=== PATIENT | male | born 1990 | race Caucasian/White ===

== ENCOUNTER 2023-06-03 05:44 | Observation (INO) | payer OTHER ==
[2023-06-03 06:29] LABS: Basophils % (A) 0 %; Eosinophils # (A) 0.3 k/uL (0-0.7); Eosinophils % (A) 4 %; HCT 42.4 % (39.0-53.0); HGB 14.8 gm/dL (13.0-17.5); Lymphocytes % (A) 33 %; MCH 32.4 pg (25.0-35.0); MCHC 35.1 g/dL (31.0-37.0); MCV 92.4 fL (80.0-100.0); Mean Platelet Volume 8.7; Monocytes # (A) 0.4 k/uL (0-1.0); Monocytes % (A) 7 %; Neutrophils # (A) 3.3 k/uL (1.3-7.7); Neutrophils % (A) 54 %; Platelet Count 163 k/uL (150-450); RBC 4.58 m/uL (4.30-5.90)
[2023-06-03] MEDS ORDERED: NITROGLYCERIN 0.3MG/HR PATCH TRANSDERM ONE (06:49)
[2023-06-03] MEDS ORDERED: ASPIRIN 81 MG PO STA ×2 (06:52→07:37)
--- NOTE | 2023-06-03 06:52 | ED ---
Chest Pain HPI - General Chief Complaint: Chest Pain Stated Complaint: Chest Pain Source: patient Mode of arrival: wheelchair Limitations: no limitations - History of Present Illness Initial Comments: The patient's a 33-year-old gentleman with a cardiac history and one stent placed in January who presents emergency room accompanied by his parents for chest pain that started 5 hours ago. Patient was playing video games when he noticed pressure in his chest. He states it radiates to the throat and neck. He states it feels similar to when he had a heart attack back in January. Patient was seen in [place] and had his 6 month follow-up without any changes. Patient is on Brilinta. He has not established with a ranch hand livestock or PCP since moving to [place]. The patient states that after he started to have the pain he felt as though his heart was racinging. he denies any shortness breath, cough, congestion, fevers, hemoptysis, pain or side to lower extremity or history of DVT or PE. His father at 37 from heart attack however mother states is also drug induced. He has a strong family history of cardiac disease at an early age. Patient denies any daily alcohol. He is a nonsmoker and denies any drug use. - Related Data Allergies Allergy/AdvReac Type Severity Reaction Status Date / Time No Known Allergies Allergy Verified 06/03/23 05:53 Review of Systems ROS Statement: Those systems with pertinent positive or pertinent negative responses have been documented in the HPI. ROS Other: All systems not noted in ROS Statement are negative. EKG Findings - EKG Comments: EKG Findings:: EKG shows sinus rhythm at a rate of 61 bpm, no acute ST segment elevation, normal QT interval at 404 ms Past Medical History Additional Past Medical History / Comment(s): ME History of Any Multi-Drug Resistant Organisms: None Reported Past Surgical History: Heart Catheterization With Stent Past Psychological History: No Psychological Hx Reported Smoking Status: Never smoker Past Alcohol Use History: Occasional Past Drug Use History: None Reported General Exam Limitations: no limitations General appearance: alert, in no apparent distress Head exam: Present: atraumatic Eye exam: Present: normal appearance, PERRL ENT exam: Present: normal exam Neck exam: Present: normal inspection Respiratory exam: Present: normal lung sounds bilaterally Cardiovascular Exam: Present: regular rate, normal rhythm GI/Abdominal exam: Present: soft Neurological exam: Present: alert, oriented X3, CN II-XII intact Psychiatric exam: Present: normal affect, normal mood Skin exam: Present: warm, dry Course Vital Signs 06/03/23 06/03/23 05:50 07:38 Temperature 97.9 F 98.3 F Pulse Rate 75 64 Respiratory 18 17 Rate Blood Pressure 133/87 120/78 O2 Sat by Pulse 100 98 Oximetry - Reevaluation(s) Reevaluation #1: 06/03/23 08:19 The patient's well appearing emergency room. His pain is improved since getting to the emergency room. He was given aspirin as he only took 81 mg prior to arrival emergency room. Has not been given nitro in the emergency room this time. I discussed admission with the patient and family at bedside as patient has no ranch hand livestock to follow up with locally. He agrees to this plan. Mom is requesting a referral to ranch hand livestock Dr. Alexander 06/03/23 08:20 Chest Pain MDM - MDM Was pt. sent in by a medical professional or institution (, PA, EDITOR MAP, urgent care, hospital, or fci...) When possible be specific @ -[No] Did you speak to anyone other than the patient for history (EMS, parent, family, police, friend...)? What history was obtained from this source @ -Parents at the bedside Did you review nursing and triage notes (agree or disagree)? Why? @ -[I reviewed and agree with nursing and triage notes] Were old charts reviewed (outside hosp., previous admission, EMS record, old EKG, old radiological studies, urgent care reports/EKG's, fci records)? Report findings @ -[No old charts were reviewed] Differential Diagnosis (chest pain, altered mental status, abdominal pain women, abdominal pain men, vaginal bleeding, weakness, fever, dyspnea, syncope, headache, dizziness, GI bleed, back pain, seizure, CVA, palpatations, mental health, musculoskeletal)? @ -Chest pain, angina, ME, GERD EKG interpreted by me (3pts min.). @ -EKG shows sinus rhythm at a rate of 61 bpm, no acute ST segment elevation X-rays interpreted by me (1pt min.). @ -Or thorax, pneumonia or other acute changes seen on chest x-ray CT interpreted by me (1pt min.). @ -[None done] U/S interpreted by me (1pt. min.). @ -[None done] What testing was considered but not performed or refused? (CT, X-rays, U/S, labs)? Why? @ -[None] What meds were considered but not given or refused? Why? @ -[None] Did you discuss the management of the patient with other professionals (professionals i.e. Dr., PA, EDITOR MAP, lab, RT, psych nurse, oncology social worker, form maker plaster, teacher, civil preparedness officer, case making machine operator)? Give summary @ -I spoke with Dr. Powell who was the internal hospitalist for [facility] group regarding patient's admission and cardiac evaluation. He will continue the cardiac rule out and referrals with the observation hospital stay. Was smoking cessation discussed for >3mins.? @ -[No] Was critical care preformed (if so, how long)? @ -[No] Were there social determinants of health that impacted care today? How? (Homelessness, low income, unemployed, alcoholism, drug addiction, transportation, low edu. Level, literacy, decrease access to med. care, residential, rehab)? @ -[No] Was there de-escalation of care discussed even if they declined (Discuss DNR or withdrawal of care, Hospice)? DNR status @ -[No] What co-morbidities impacted this encounter? (DM, HTN, Smoking, COPD, CAD, Cancer, CVA, ARF, Chemo, Hep., AIDS, mental health diagnosis, sleep apnea, morbid obesity)? @ -History of ME with coronary artery disease Was patient admitted / discharged? Hospital course, mention meds given and route, prescriptions, significant lab abnormalities, going to OR and other pertinent info. @ -Patient will be admitted to the hospital for observation and further cardiac evaluation given his significant history. At this time troponin is negative with no acute ST segment elevation. We will trend the troponin is and the patient establish with a local ranch hand livestock prior to being discharged. Undiagnosed new problem with uncertain prognosis? @ -[No] Drug Therapy requiring intensive monitoring for toxicity (Heparin, Nitro, Insulin, Cardizem)? @ -[No] Were any procedures done? @ -[No] Diagnosis/symptom? @ -Chest pain Acute, or Chronic, or Acute on Chronic? @ -Acute Uncomplicated (without systemic symptoms) or Complicated (systemic symptoms)? @ -Uncomplicated Side effects of treatment? @ -[No] Exacerbation, Progression, or Severe Exacerbation? @ -[No] Poses a threat to life or bodily function? How? (Chest pain, USA, ME, pneumonia, PE, COPD, DKA, ARF, appy, cholecystitis, CVA, Diverticulitis, Homicidal, Suicidal, threat to staff... and all critical care pts) @ -Given patient's history of ME with stent placement and significant family history his pain does poses a threat to life and disability. Disposition Clinical Impression: Chest pain Disposition: ADMITTED IP TO THIS HOSP Condition: Good Is patient prescribed a controlled substance at d/c from ED?: No Referrals: None,Stated [Primary Care Provider] - 1-2 days Decision to Admit Reason: Admit from EC Decision Time: 08:26
[2023-06-03 06:59] LABS: ALT 62 U/L (4-49); AST 51 U/L (17-59); African American GFR (CKD) >90 (>60 ml/min/1.73 sqM); Albumin 4.3 g/dL (3.5-5.0); Alkaline Phosphatase 104 U/L (38-126); Anion Gap 11 mmol/L; Blood Urea Nitrogen 16 mg/dL (9-20); Calcium 9.4 mg/dL (8.4-10.2); Carbon Dioxide 21 mmol/L (22-30); Chloride 105 mmol/L (98-107); Glucose 126 mg/dL (74-99); Non-African American GFR(CKD) >90 (>60 ml/min/1.73 sqM); Sodium 137 mmol/L (137-145); Total Bilirubin 0.5 mg/dL (0.2-1.3); Total Protein 7.1 g/dL (6.3-8.2)
[2023-06-03 07:17] LABS: INR 0.9 (<1.2); Partial Thromboplastin Time 24.4 sec (22.0-30.0); Prothrombin Time 10.5 sec (10.0-12.5)
--- NOTE | 2023-06-03 07:17 | XR ---
EXAMINATION TYPE: XR chest 2V DATE OF EXAM: 06/03/2023 6:32 AM CLINICAL INDICATION:Male, 33 years old with history of chest pain; COMPARISON: Chest radiographs from 04/01/2012 TECHNIQUE: XR chest 2V Frontal and lateral views of the chest. FINDINGS: Lungs/Pleura: There is no evidence of pleural effusion, focal consolidation, or pneumothorax. Pulmonary vascularity: Unremarkable. Heart/mediastinum: Cardiomediastinal silhouette is unremarkable. Musculoskeletal: No acute osseous pathology. Other findings: None IMPRESSION: No acute cardiopulmonary disease/process.
[2023-06-03] MEDS ORDERED: NITROGLYCERIN SL TABS 0.4 MG TAB SUBLINGUAL PRN ×3 (07:37→10:52)
[2023-06-03] MEDS ORDERED: HEPARIN SODIUM 1,000 UN/ML (10ML VL) IV ONE ×2 (08:34→12:08)
[2023-06-03] MEDS ORDERED: ACETAMINOPHEN TAB 325 MG TAB PO PRN (08:34)
[2023-06-03] MEDS ORDERED: NALOXONE 0.4 MG/ML 1 ML VIAL IVP PRN (08:34)
[2023-06-03] MEDS ORDERED: HEPARIN SODIUM 1,000 UN/ML (10ML VL) IV PRN (08:34)
[2023-06-03] MEDS ORDERED: HYDROcodone/APAP 5-325MG 1 EACH TAB PO PRN (08:34)
[2023-06-03] MEDS ORDERED: PANTOPRAZOLE 40 MG TABLET PO SCH (08:45)
[2023-06-03] MEDS ORDERED: HEPARIN SOD,PORK IN 0.45% NACL 25,000 UNIT in 0.45% NACL 1 250ML.BAG IV SCH (08:45)
[2023-06-03] MEDS ORDERED: ATORVASTATIN 80 MG TAB PO SCH ×2 (09:00→21:00)
[2023-06-03] MEDS ORDERED: ASPIRIN 81 MG PO SCH (09:00)
[2023-06-03] MEDS ORDERED: TICAGRELOR 90 MG TAB PO SCH (10:45)
[2023-06-03] MEDS ORDERED: ATORVASTATIN 80 MG TAB PO STA (10:52)
[2023-06-03] MEDS ORDERED: ASPIRIN 325 MG TAB PO STA (10:52)
[2023-06-03] MEDS ORDERED: ALPRAZolam 0.25 MG TAB PO PRN (10:52)
[2023-06-03] MEDS ORDERED: ALPRAZolam 0.5 MG TAB PO PRN (10:52)
[2023-06-03 10:57] LABS: Amphetamine Screen,Urine Not Detected (NotDetected); Barbiturate Screen,Urine Not Detected (NotDetected); Benzodiazepines Screen,Urine Not Detected (NotDetected); Cocaine Screen,Urine Not Detected (NotDetected); Methadone Screen, Urine Not Detected (NotDetected); Opiate Screen,Urine Not Detected (NotDetected); Oxycodone Screen, Urine Not Detected (NotDetected); Phencyclidine Screen,Urine Not Detected (NotDetected); Tricyclic Antidepressant,Urine Not Detected (NotDetected); Urn Cannabinoid Scrn Not Detected (NotDetected)
[2023-06-03] MEDS ORDERED: SODIUM CHLORIDE 0.9% 1,000 ML in EMPTY BAG 1 BAG IV SCH (11:00)
[2023-06-03] MEDS ORDERED: VERAPAMIL 2.5 MG/ML 2 ML AMP ONE (11:25)
[2023-06-03] MEDS ORDERED: LIDOCAINE 1% INJ 10MG/ML (20 ML MDV) ONE (11:25)
[2023-06-03] MEDS ORDERED: fentaNYL (PF) 50 MCG/ML 2 ML AMP ONE (11:37)
[2023-06-03] MEDS ORDERED: HEPARIN SODIUM 1,000 UN/ML (10ML VL) ONE (11:37)
[2023-06-03] MEDS ORDERED: IV FLUID CONTINUATION 1,000 ML IV ONE (11:51)
[2023-06-03] MEDS ORDERED: LIDOCAINE 1% INJ 10MG/ML (20 ML MDV) SQ ONE (11:55)
[2023-06-03] MEDS ORDERED: fentaNYL (PF) 50 MCG/ML 2 ML AMP IVP ONE (11:56)
[2023-06-03] MEDS ORDERED: VERAPAMIL SYRINGE (5 MG/10 ML) INTRAARTER ONE (12:00)
--- NOTE | 2023-06-03 12:08 | P.CRDCN ---
History of Present Illness History of present illness: HISTORY OF PRESENT ILLNESS: This is a 33-year-old male with a past medical history significant for coronary artery disease with stenting of the diagonal in January 2023, hyperlipidemia, and occasional alcohol use. Patient does not follow with a radio communications superintendent at [facility]. We have been asked to see the patient in consultation for chest pain. Patient examined at the bedside. Patient states yesterday he was feeling "off" for the majority of the day but did not describe any specific symptoms. He states at 1:30 this morning he was awake and began having chest pain. He states the pain was in the middle of his chest. He denied any radiation of the pain. He states that he took an aspirin and tried to fall asleep. He states he woke up a short time later and was short of breath, felt his heart pounding, and was having very bad heartburn symptoms. He states the symptoms do not feel at all like his symptoms in January when he had his stent placed. He states at that time he was having chest pain and shortness of breath with exertion for 4-5 days. At the time of examination, the patient reports mild heartburn. He is a nonsmoker. He reports alcohol use every other day of 1-2 drinks. He states he followed up with the radio communications superintendent who performed his stenting one month after his procedure and was told everything looked good and he could follow up again in 6 months. * EKG reveals sinus mechanism with no signs of acute ischemia * Chest xray negative for acute process * Laboratory data: Troponin negative 2 * Current home cardiac medications include aspirin 81 mg daily, atorvastatin 80 mg at night, metoprolol tartrate 25 mg daily, and Brilinta 90 mg twice a day REVIEW OF SYSTEMS: At the time of my exam: CONSTITUTIONAL: Denies fever or chills. HEENT: Denies blurred vision, vision changes, or eye pain. Denies hemoptysis CARDIOVASCULAR: Denies chest pain. Denies orthopnea. Denies PND. Denies palpitations RESPIRATORY: Denies shortness of breath. GASTROINTESTINAL: Denies abdominal pain. Denies nausea or vomiting. HEMATOLOGIC: Denies bleeding disorders. GENITOURINARY: Denies any blood in urine. SKIN: Denies pruitis. Denies rash. PHYSICAL EXAM: VITAL SIGNS: Reviewed. GENERAL: Well-developed in no acute distress. HEENT: Head is normocephalic. Pupils are equal, round. Sclerae anicteric. Mucous membranes of the mouth are moist. Neck supple. No JVD or thyromegaly LUNGS: Respirations even and unlabored. Lungs essentially clear to auscultation bilaterally. HEART: Regular rate and rhythm. S1 and S2 heard. ABDOMEN: Soft. Nondistended. Nontender. EXTREMITIES: Normal range of motion. No clubbing or cyanosis. Peripheral pulses intact. No lower extremity edema NEUROLOGIC: Awake and alert. Oriented x 3. ASSESSMENT: Chest pain Coronary artery disease with recent stenting to the diagonal, January 2023, at [facility] Hyperlipidemia Occasional alcohol use PLAN: Obtain 2-D echo to assess cardiac structure and function Discontinue IV heparin Resume home cardiac medications Patient to undergo cardiac catheterization today with Dr. Denton Further recommendations pending patient course Nurse practitioner note has been reviewed by physician. Signing provider agrees with the documented findings, assessment, and plan of care. Past Medical History Additional Past Medical History / Comment(s): OR History of Any Multi-Drug Resistant Organisms: None Reported Past Surgical History: Heart Catheterization With Stent Past Psychological History: No Psychological Hx Reported Smoking Status: Never smoker Past Alcohol Use History: Occasional Past Drug Use History: None Reported Medications and Allergies Home Medications Medication Instructions Recorded Confirmed Type Aspirin 81 mg PO DAILY 06/03/23 06/03/23 History Atorvastatin Calcium [Lipitor] 80 mg PO HS 06/03/23 06/03/23 History Metoprolol Tartrate [Lopressor] 25 mg PO DAILY 06/03/23 06/03/23 History Ticagrelor [Brilinta] 90 mg PO BID 06/03/23 06/03/23 History Allergies Allergy/AdvReac Type Severity Reaction Status Date / Time No Known Allergies Allergy Verified 06/03/23 08:38 Physical Exam Vitals: Vital Signs Temp Pulse Pulse Resp BP BP Pulse Ox 06/03/23 09:54 97.6 F 51 L 12 116/78 99 06/03/23 08:59 55 L 18 108/72 97 06/03/23 07:38 98.3 F 64 17 120/78 98 06/03/23 05:50 97.9 F 75 18 133/87 100 Intake and Output 06/02/23 06/03/23 06/03/23 22:59 06:59 14:59 Other: Weight 86.183 kg Results 06/03/23 06:15 06/03/23 06:15 Cardiac Enzymes 06/03/23 06/03/23 Range/Units 06:15 06:15 AST 51 (17-59) U/L Troponin I <0.012 (0.000-0.034) ng/mL Coagulation 06/03/23 Range/Units 06:53 PT 10.5 (10.0-12.5) sec APTT 24.4 (22.0-30.0) sec CBC 06/03/23 Range/Units 06:15 WBC 6.0 (3.8-10.6) k/uL RBC 4.58 (4.30-5.90) m/uL Hgb 14.8 (13.0-17.5) gm/dL Hct 42.4 (39.0-53.0) % Plt Count 163 (150-450) k/uL Comprehensive Metabolic Panel 06/03/23 Range/Units 06:15 Sodium 137 (137-145) mmol/L Potassium 4.0 (3.5-5.1) mmol/L Chloride 105 (98-107) mmol/L Carbon Dioxide 21 L (22-30) mmol/L BUN 16 (9-20) mg/dL Creatinine 0.94 (0.66-1.25) mg/dL Glucose 126 H (74-99) mg/dL Calcium 9.4 (8.4-10.2) mg/dL AST 51 (17-59) U/L ALT 62 H (4-49) U/L Alkaline Phosphatase 104 (38-126) U/L Total Protein 7.1 (6.3-8.2) g/dL Albumin 4.3 (3.5-5.0) g/dL Current Medications Generic Name Dose Route Start Last Admin Trade Name Freq PRN Reason Stop Dose Admin Acetaminophen 650 mg 06/03/23 08:34 Acetaminophen Tab 325 Mg Tab PO Q6HR PRN Mild Pain or Fever > 100.5 Hydrocodone Bitart/Acetaminophen 1 each 06/03/23 08:34 Hydrocodone/Apap 5-325mg 1 Each Tab PO Q4HR PRN Moderate Pain (Scale 4 to 6) Aspirin 81 mg 06/04/23 09:00 06/03/23 10:08 Aspirin 81 Mg PO Not Given DAILY [facility] Atorvastatin Calcium 80 mg 06/03/23 21:00 Atorvastatin 80 Mg Tab PO HS MAGDY Heparin Sodium (Porcine) 0 unit 06/03/23 08:34 Heparin Sodium 1,000 Un/Ml (10ml Vl) IV PER PROTOCOL PRN Low PTT Protocol Heparin Sodium/Sodium Chloride 250 mls @ 10 mls/hr 06/03/23 08:45 06/03/23 0 8:57 25,000 unit/ Sodium Chloride IV 11.603 units/kg/hr .Q24H MAGDY 10 mls/hr Administration Protocol 11.603 UNITS/KG/HR Naloxone HCl 0.2 mg 06/03/23 08:34 Naloxone 0.4 Mg/Ml 1 Ml Vial IVP Q2M PRN Opioid Reversal Nitroglycerin 0.4 mg 06/03/23 08:31 Nitroglycerin Sl Tabs 0.4 Mg Tab SUBLINGUAL Q5M PRN Chest Pain Pantoprazole Sodium 40 mg 06/03/23 08:45 06/03/23 08:57 Pantoprazole 40 Mg Tablet PO 40 mg [id number] [facility] Administration Intake and Output 06/02/23 06/03/23 06/03/23 22:59 06:59 14:59 Other: Weight 86.183 kg 06/03/23 06:15 06/03/23 06:15
[2023-06-03] MEDS ORDERED: IOPAMIDOL-370 100ML BTL INJ ONE (12:18)
[2023-06-03] MEDS ORDERED: RX INFO: IV CONTRAST WAS GIVEN 1 EACH MISC MISCELLANE PRN (12:29)
[2023-06-03] MEDS ORDERED: SODIUM CHLORIDE 0.9% 1,000 ML IV SCH (12:30)
--- NOTE | 2023-06-03 12:34 | P.CARDCATH ---
Date of Procedure: 06/03/23 Description of Procedure: Cardiac Catheterization: The patient is a 33-year-old male with a known history of CAD status post stenting of his diagonal branch in January in the setting of a myocardial infarction, family history of premature CAD, hyperlipidemia who presented with symptoms of chest discomfort, persistent with no evidence of acute ST segment changes or enzymatic changes. Recommendations were made regarding cardiac catheterization, the risks and the complications were discussed with the patient who is in full understanding and agreement. Procedure Description: Patient was brought to senior cytogenetics laboratory director in fasting semi-sedated state after receiving Fentanyl and Benadryl achieiving moderate conscious sedated state. Using Xylocaine Anesthesia and modified Seldinger technique, a 6-Libyan sheath was introduced in the left radial artery . Subsequently, selective coronary angiography was performed using a 5-Libyan 4 bend John right catheter and 3.5 left John catheter. Multiple views of the coronary artery including hemiaxial views were obtained. The left John catheter was used to cross the aortic valve and LVEDP was calculated. Following that, catheter and sheath were removed. Hemostasis was obtained with deployment of vascular band . There was no immediate complication. Patient was returned to room in stable condition. Of note, the patient received a total of 4000 units of intravenous heparin as well as intra-arterial verapamil. Findings: Left main: This is a large size vessel, bifurcating into LAD and left circumflex, left main has no obstructive disease LAD: This is a large-size vessel giving rise to a large diagonal branch proximally. The stented segment in the diagonal branch is patent. The LAD has no evidence of obstructive disease Left circumflex: This is a nondominant vessel large in caliber giving rise to a large obtuse marginal branch. The obtuse marginal branch has intimal disease of 30-40% with no high-grade stenosis RCA: This is a large dominant vessel bifurcating to PDA and PLV. The proximal and distal RCA have mild plaque of 10-20% with no high-grade stenosis Left Ventriculogram: Not performed Hemodynamics: There was no gradient across the aortic valve , LVEDP was 8-12 mmHg Conclusion: 1. Patent stent in the diagonal branch with no evidence of in-stent restenosis 2. Mild disease in the RCA and left circumflex 3. Right dominance 4. Normal LVEDP Recommendations: The patient will continue on his present medical regimen in addition to aggressive coronary risks modifications. The findings and the recommendations were discussed with the patient and the family and they were in full understanding and agreement. Duration of sedation is 23 minutes.
--- NOTE | 2023-06-03 12:51 | P.HPIM ---
History of Present Illness H&P Date: 06/03/23 History of Presenting Illness: Patient is a very pleasant 33-year-old male with a past medical history of CAD status post stenting of January 2023 at [facility] currently on dual antiplatelet therapy with daily aspirin and Brilinta and hyperlipidemia. He reports recently moving to [place] and not yet establishing care with child development instructor or primary care physician in this area but had his follow-up appointment with his child development instructor at [facility] in February and has been taking medication daily as prescribed without missing any doses. Patient presented to the hospital this morning secondary to experiencing pain to mid sternal chest accompanied by diaphoresis, palpitations, and shortness of breath. Patient reported this pain radiated into his neck and jaw and even felt tingling in his fingertips. Patient reports he was sitting down playing video games when this pain began and denies being anxious or upset. Patient reports he did feel a little off and just fatigued yesterday but nothing significant. Patient also reports he has been experiencing some difficulties sleeping but otherwise denies any complaints or recent illnesses. Patient denies any drug use, denies nicotine use, and reports drinking alcohol approximately 3 times a week consisting of 1-2 glasses of wine each time. Patient does report family history of heart disease stating his father at the age of 37 from a heart attack. Patient underwent full evaluation in the emergency department. Vital signs upon arrival reviewed showing blood pressure 133/87, heart rate 75, respiratory rate 18, temp 97.9F, SpO2 100% on room air. EKG completed showing normal sinus rhythm at 61 bpm with no noted T-wave or ST abnormalities upon personal review and interpretation. Chest x-ray completed and was negative for acute cardiopulmonary process. Labs were completed and reviewed. CBC, coagulation profile, and BMP were unremarkable. Liver profile showing slightly elevated ALT of 62 otherwise normal findings. Troponin was negative at less than 0.012. Urine drug screen negative. Patient started on low intensity heparin infusion and admitted under our services.to cardiac observation unit with telemetry. Consult placed to cardiology. Review of systems: Pertinent positives and negatives as discussed in HPI, a complete review of systems was performed and all other systems are negative. Physical exam: Vital signs reviewed and stable. General: Nontoxic, no distress and appears stated age. Derm: Skin warm and dry, normal coloration for ethnicity. Head: Atraumatic, normocephalic and symmetric. Eyes: EOMs intact, no lid lag, and anicteric sclera Mouth: no lip lesions, mucus membranes moist Cardiovascular: regular rate and rhythm with normal S1S2, no murmur, positive posterior tibial pulses bilaterally, and cap refill < 2 seconds. Lungs: Respirations even, regular, and unlabored on room air. Lungs CTA bilaterally, no rhonchi, no rales, no wheezing, and no accessory muscle usage. Abdominal: soft, nontender to palpation, no guarding, no appreciable organomegaly Ext: ROM intact. No gross muscle atrophy, no edema, no contractures Neuro: Speech clear, face symmetrical and CN II-XII grossly intact with no noted focal neuro deficits Psych: Alert and oriented to person, place, time, and situation. Appropriate and pleasant affect. Assessment and Plan of Care: Chest pain, rule out acute coronary event History of CAD with recent stenting January 2023 Hyperlipidemia -Cardiology consult, appreciate further recommendations -Patient started on low intensity heparin infusion and admitted under our services.to cardiac observation unit with telemetry. -Telemetry monitoring -Trend troponins. -Cardiac diet, NPO at midnight. -Continue Brilinta 90 mg twice daily, metoprolol 25 mg daily, Aspirin 81 mg daily, -Lipid profile with a.m. labs. -Echocardiogram Data and imaging reviewed: -Vital signs upon arrival reviewed showing blood pressure 133/87, heart rate 75, respiratory rate 18, temp 97.9F, SpO2 100% on room air. -EKG completed showing normal sinus rhythm at 61 bpm with no noted T-wave or ST abnormalities upon personal review and interpretation. -Chest x-ray completed and was negative for acute cardiopulmonary process. -Labs were completed and reviewed. CBC, coagulation profile, and BMP were unremarkable. Liver profile showing slightly elevated ALT of 62 otherwise normal findings. Troponin was negative at less than 0.012. -Urine drug screen negative. The patient is admitted with an anticipated less than 2 midnight stay for evaluation of chest pain CODE STATUS: Full code DVT prophylaxis: Heparin Anticipated discharge date: Clinical course to determine, likely 24-[address]: Home Patient was seen independently by Nurse Practitioner. This document was prepared using [employer] dictation software. Please allow for errors in metal drill press operator while rare they do occur. Past Medical History Additional Past Medical History / Comment(s): [place] History of Any Multi-Drug Resistant Organisms: None Reported Past Surgical History: Heart Catheterization With Stent Past Psychological History: No Psychological Hx Reported Smoking Status: Never smoker Past Alcohol Use History: Occasional Past Drug Use History: None Reported Medications and Allergies Home Medications Medication Instructions Recorded Confirmed Type Aspirin 81 mg PO DAILY 06/03/23 06/03/23 History Atorvastatin Calcium [Lipitor] 80 mg PO HS 06/03/23 06/03/23 History Metoprolol Tartrate [Lopressor] 25 mg PO DAILY 06/03/23 06/03/23 History Ticagrelor [Brilinta] 90 mg PO BID 06/03/23 06/03/23 History Allergies Allergy/AdvReac Type Severity Reaction Status Date / Time No Known Allergies Allergy Verified 06/03/23 08:38 Physical Exam Vitals: Vital Signs Temp Pulse Resp BP Pulse Ox 06/03/23 07:38 98.3 F 64 17 120/78 98 06/03/23 05:50 97.9 F 75 18 133/87 100 Intake and Output 06/02/23 06/03/23 06/03/23 22:59 06:59 14:59 Other: Weight 86.183 kg Results CBC & Chem 7: 06/03/23 06:15 06/03/23 06:15 Labs: Abnormal Lab Results - Last 24 Hours (Table) 06/03/23 Range/Units 06:15 Carbon Dioxide 21 L (22-30) mmol/L Glucose 126 H (74-99) mg/dL ALT 62 H (4-49) U/L
[2023-06-03 16:28] VITALS: BP 103/74; PULSE 58; RESP 16; TEMP 97.7
--- NOTE | 2023-06-03 19:11 | P.DS ---
Providers Date of admission: 06/03/23 08:38 Expected date of discharge: 06/03/23 Attending physician: Herson Powell MD Consults: 06/03/23 08:32 Consult Physician Urgent Consulting Provider: Manoj Sin Consult Reason/Comments: chest pain Do you want consulting provider notified?: Yes Primary care physician: Stated None Hospital Course: Discharge Diagnosis: Chest pain, rule out acute coronary event History of CAD with recent stenting January 2023 Hyperlipidemia Hospital Course: Patient is a very pleasant 33-year-old male with a past medical history of CAD status post stenting of diagonal January 2023 at [facility] currently on dual antiplatelet therapy with daily aspirin and Brilinta and hyperlipidemia. He reports recently moving to [place] and not yet establishing care with supervisor shop or primary care physician in this area but had his follow-up appointment with his supervisor shop at [facility] in February and has been taking medication daily as prescribed without missing any doses. Patient presented to the hospital this morning secondary to experiencing pain to mid sternal chest accompanied by diaphoresis, palpitations, and shortness of breath. Patient reported this pain radiated into his neck and jaw and even felt tingling in his fingertips. Patient reports he was sitting down playing video games when this pain began and denies being anxious or upset. Patient reports he did feel a little off and just fatigued yesterday but nothing significant. Patient also reports he has been experiencing some difficulties sleeping but otherwise denies any complaints or recent illnesses. Patient denies any drug use, denies nicotine use, and reports drinking alcohol approximately 3 times a week consisting of 1-2 glasses of wine each time. Patient does report family history of heart disease stating his father at the age of 37 from a heart attack. Patient underwent full evaluation in the emergency department. Vital signs upon arrival reviewed showing blood pressure 133/87, heart rate 75, respiratory rate 18, temp 97.9F, SpO2 100% on room air. EKG completed showing normal sinus rhythm at 61 bpm with no noted T-wave or ST abnormalities upon personal review and interpretation. Chest x-ray completed and was negative for acute cardiopulmonary process. Labs were completed and reviewed. CBC, coagulation profile, and BMP were unremarkable. Liver profile showing slightly elevated ALT of 62 otherwise normal findings. Troponin was negative at less than 0.012. Urine drug screen negative. Patient started on low intensity heparin infusion and admitted under our services.to cardiac observation unit with telemetry. Consult placed to cardiology. Troponins were trended all negative at less than 0.0123 draws. Cardiology evaluated and patient for cardiac cath. Showing a patent stent with no evidence of in-stent restenosis and mild disease of the RCA and left circumflex. Cardiology recommending continued aggressive medication regimen. Clearing patient from cardiac perspective. Patient reports full re solution of his symptoms approximately 3 hours after arrival to our facility. Medically, patient is stable for discharge at this time. Patient provided with information on local PCP and to follow up with supervisor shop in 1 week. Physical exam: Vital signs reviewed and stable. General: Nontoxic, no distress and appears stated age. Derm: Skin warm and dry, normal coloration for ethnicity. Head: Atraumatic, normocephalic and symmetric. Eyes: EOMs intact, no lid lag, and anicteric sclera Mouth: no lip lesions, mucus membranes moist Cardiovascular: regular rate and rhythm with normal S1S2, no murmur, positive posterior tibial pulses bilaterally, and cap refill < 2 seconds. Lungs: Respirations even, regular, and unlabored on room air. Lungs CTA bilaterally, no rhonchi, no rales, no wheezing, and no accessory muscle usage. Abdominal: soft, nontender to palpation, no guarding, no appreciable organomegaly Ext: ROM intact. No gross muscle atrophy, no edema, no contractures Neuro: Speech clear, face symmetrical and CN II-XII grossly intact with no noted focal neuro deficits Psych: Alert and oriented to person, place, time, and situation. Appropriate and pleasant affect. A total of 29 minutes of time were spent preparing this complex discharge summary. Pt was discharged on 06/13/23 at 4:50 PM. Patient was seen independently by Nurse Practitioner. This document was prepared using [employer] dictation software. Please allow for errors in precision farming specialist while rare they do occur. Patient Condition at Discharge: Stable Plan - Discharge Summary Discharge Rx Participant: No New Discharge Prescriptions: Continue Ticagrelor [Brilinta] 90 mg PO BID Metoprolol Tartrate [Lopressor] 25 mg PO DAILY Atorvastatin Calcium [Lipitor] 80 mg PO HS Aspirin 81 mg PO DAILY Discharge Medication List Aspirin 81 mg PO DAILY 06/03/23 [History] Atorvastatin Calcium [Lipitor] 80 mg PO HS 06/03/23 [History] Metoprolol Tartrate [Lopressor] 25 mg PO DAILY 06/03/23 [History] Ticagrelor [Brilinta] 90 mg PO BID 06/03/23 [History] Follow up Appointment(s)/Referral(s): Funmi Denton MD [STAFF PHYSICIAN] - 1 Week Abilio Fuller MD [REFERRING] - 1 Week (Strongly recommend establishing care with a PCP) Patient Instructions/Handouts: *[facility] - After Heart Catheterization - Data Center Architect Instructions, Chest Pain (DC), Heart Catheterization (DC) Activity/Diet/Wound Care/Special Instructions: Activity: As tolerated. Take breaks as needed. Diet: Heart healthy and carb consistent diet. Avoid salts, or foods with hidden salts such as canned or boxed foods and frozen dinners. Extra salt makes your heart work harder and traps the fluid in your body for longer. Special Instructions: Take all of your medications as directed and remember to keep all of your doctor's appointments and follow-up as needed. Thank you for allowing us to participate in your care, it was truly a pleasure having you for our patient!!! Discharge Disposition: HOME SELF-CARE
[2023-06-04] MEDS ORDERED: HEPARIN SODIUM,PORCINE (1 ML) 2,500 UNIT in SODIUM CHLORIDE 0.9% 250 ML IRRIGATION PRN (07:00)
[2023-06-04] MEDS ORDERED: HEPARIN SODIUM,PORCINE 10,000 UNIT in SODIUM CHLORIDE 0.9% 1,000 ML IRRIGATION PRN (07:00)
[2023-06-04] MEDS ORDERED: ASPIRIN 81 MG PO SCH (09:00)
[2023-06-04] MEDS ORDERED: METOPROLOL TARTRATE 25 MG TAB PO SCH (09:00)
[2023-06-04] MEDS ORDERED: ASPIRIN 325 MG TAB PO SCH (09:00)
== END 2023-06-03 17:31 | disposition home or self-care (01) ==
LOC: EC 05:44 → 6NMEDSUR 08:38
PROVIDERS: ADMIT Student in an Organized Health Care Education/Training Program; ATTEND Student in an Organized Health Care Education/Training Program
DX: R07.89 Other chest pain (principal); I25.10 Atherosclerotic heart disease of native coronary artery without angina pectoris; E78.5 Hyperlipidemia, unspecified; M54.2 Cervicalgia; R68.84 Jaw pain; R12 Heartburn; R00.2 Palpitations; R06.02 Shortness of breath; R61 Generalized hyperhidrosis; R20.2 Paresthesia of skin; R53.83 Other fatigue; R74.01 Elevation of levels of liver transaminase levels; F10.90 Alcohol use, unspecified, uncomplicated; I25.2 Old myocardial infarction; Z79.02 Long term (current) use of antithrombotics/antiplatelets; Z79.82 Long term (current) use of aspirin; Z79.899 Other long term (current) drug therapy; Z95.5 Presence of coronary angioplasty implant and graft; Z82.49 Family history of ischemic heart disease and other diseases of the circulatory system
CPT/HCPCS: 96376; 96365; 99285; 36415; 93005; 93458; 80053; 84484; 85025; 85610; 85730; 80306; 71046; G0378; C1769 ×2; C1894; J2001; J3010; J1644 ×2; Q9967

== ENCOUNTER 2024-04-24 09:08 | Observation (INO) | payer OTHER ==
[2024-04-24] MEDS: SODIUM CHLORIDE 0.9% 1,000 ML IV STA (09:35)
--- NOTE | 2024-04-24 09:46 | ED ---
Chest Pain HPI - General Chief Complaint: Chest Pain Stated Complaint: chest pain Time Seen by Provider: 04/24/24 09:22 Source: patient, RN notes reviewed, old records reviewed Mode of arrival: ambulatory Limitations: no limitations - History of Present Illness Initial Comments: 34 year old male presents to the emergency department with chief complaint of chest pain that began one week ago. He reports previous stent placement in 2019 and his strand and binder controller recently discontinued his metoprolol due to bradycardia in addition to his Brilinta. He also reports a significant family history of heart disease with father dying at age 37 due to heart attack. The pain is reported as 8/10 and intermittent, radiating at times to his left jaw and arm with mild intermittent paresthesia. He denies shortness of breath, palpitations, fever, and DVT symptoms. After the chest pain severity increased this morning, he chewed a baby aspirin which did no attenuate symptoms. He denies ETOH and tobacco use. - Related Data Home Medications Medication Instructions Recorded Confirmed Aspirin 81 mg PO DAILY 06/03/23 06/03/23 Atorvastatin Calcium [Lipitor] 80 mg PO HS 06/03/23 06/03/23 Metoprolol Tartrate [Lopressor] 25 mg PO DAILY 06/03/23 06/03/23 Ticagrelor [Brilinta] 90 mg PO BID 06/03/23 06/03/23 Allergies Allergy/AdvReac Type Severity Reaction Status Date / Time No Known Allergies Allergy Verified 06/03/23 08:38 Review of Systems ROS Statement: Those systems with pertinent positive or pertinent negative responses have been documented in the HPI. ROS Other: All systems not noted in ROS Statement are negative. EKG Findings - EKG Comments: EKG Findings:: EKG performed at 9: 29 sinus rhythm rate of 62 KS 154 QRS 94 QT/QTc 395/400 - EKG Results: EKG: interpreted by BHAVYA Past Medical History Past Medical History: Hyperlipidemia, Myocardial Infarction (ID) Additional Past Medical History / Comment(s): [place] History of Any Multi-Drug Resistant Organisms: None Reported Past Surgical History: Heart Catheterization With Stent Date of Last Stent Placement:: 2018 Past Psychological History: No Psychological Hx Reported Smoking Status: Never smoker Past Alcohol Use History: Occasional Past Drug Use History: None Reported General Exam Limitations: no limitations General appearance: alert, in no apparent distress Head exam: Present: atraumatic, normocephalic, normal inspection Eye exam: Present: normal appearance, PERRL, EOMI. Absent: scleral icterus, conjunctival injection, periorbital swelling ENT exam: Present: normal exam, normal oropharynx, mucous membranes moist Neck exam: Present: normal inspection, full ROM. Absent: tenderness, meningismus, lymphadenopathy Respiratory exam: Present: normal lung sounds bilaterally. Absent: respiratory distress, wheezes, rales, rhonchi, stridor Cardiovascular Exam: Present: regular rate, normal rhythm, normal heart sounds. Absent: systolic murmur, diastolic murmur, rubs, gallop, clicks GI/Abdominal exam: Present: soft, normal bowel sounds. Absent: distended, tenderness, guarding, rebound, rigid Extremities exam: Present: normal inspection, full ROM, normal capillary refill. Absent: tenderness, pedal edema, joint swelling, calf tenderness Back exam: Present: normal inspection Neurological exam: Present: alert, oriented X3, CN II-XII intact Psychiatric exam: Present: normal affect, normal mood Skin exam: Present: warm, dry, intact, normal color. Absent: rash Course Vital Signs 04/24/24 09:18 Temperature 97.7 F Pulse Rate 79 Respiratory 16 Rate Blood Pressure 135/89 O2 Sat by Pulse 99 Oximetry Chest Pain MDM - MDM Was pt. sent in by a medical professional or institution (SHASHANK Arteaga, INSIDE SALES MANAGER, urgent care, hospital, or longterm...) When possible be specific @ -No Did you speak to anyone other than the patient for history (EMS, parent, family, police, friend...)? What history was obtained from this source @ -No Did you review nursing and triage notes (agree or disagree)? Why? @ -I reviewed and agree with nursing and triage notes Were old charts reviewed (outside hosp., previous admission, EMS record, old EKG, old radiological studies, urgent care reports/EKG's, longterm records)? Report findings @ -No old charts were reviewed Differential Diagnosis (chest pain, altered mental status, abdominal pain women, abdominal pain men, vaginal bleeding, weakness, fever, dyspnea, syncope, headache, dizziness, GI bleed, back pain, seizure, CVA, palpatations, mental health, musculoskeletal)? @ -Differential Chest Pain: Stable Angina, Unstable Angina, STEMI, NSTEMI Aortic Dissection, Pneumothorax, Musculoskeletal, Esophageal Spasm GERD, Cholecystitis, Pancreatitis, Zoster, this is not meant to be an all-inclusive list. EKG interpreted by me (3pts min.). @ -As above X-rays interpreted by me (1pt min.). @ -Chest x-ray shows no acute cardiopulmonary process. CT interpreted by me (1pt min.). @ -None done U/S interpreted by me (1pt. min.). @ -None done What testing was considered but not performed or refused? (CT, X-rays, U/S, labs)? Why? @ -None What meds were considered but not given or refused? Why? @ -None Did you discuss the management of the patient with other professionals (professionals i.e. , PA, INSIDE SALES MANAGER, lab, RT, psych nurse, social service technician, sqe, teacher, fire control officer, case management director)? Give summary @ -Dr. Little for admission Was smoking cessation discussed for >3mins.? @ -No Was critical care preformed (if so, how long)? @ -No Were there social determinants of health that impacted care today? How? (Homelessness, low income, unemployed, alcoholism, drug addiction, transportation, low edu. Level, literacy, decrease access to med. care, care home, rehab)? @ -No Was there de-escalation of care discussed even if they declined (Discuss DNR or withdrawal of care, Hospice)? DNR status @ -No What co-morbidities impacted this encounter? (DM, HTN, Smoking, COPD, CAD, Cancer, CVA, ARF, Chemo, Hep., AIDS, mental health diagnosis, sleep apnea, morbid obesity)? @ -CAD Was patient admitted / discharged? Hospital course, mention meds given and route, prescriptions, significant lab abnormalities, going to OR and other pertinent info. @ -Patient's first troponin is negative, patient has significant history of ID with stent placement. Patient was admitted for cardiac rule out repeat troponin and cardiology evaluation. Undiagnosed new problem with uncertain prognosis? @ -No Drug Therapy requiring intensive monitoring for toxicity (Heparin, Nitro, Insulin, Cardizem)? @ -No Were any procedures done? @ -No Diagnosis/symptom? @ -Chest pain Acute, or Chronic, or Acute on Chronic? @ -Acute Uncomplicated (without systemic symptoms) or Complicated (systemic symptoms)? @ -complicated Side effects of treatment? @ -No Exacerbation, Progression, or Severe Exacerbation? @ -No Poses a threat to life or bodily function? How? (Chest pain, [place], ID, pneumonia, PE, COPD, DKA, ARF, appy, cholecystitis, CVA, Diverticulitis, Homicidal, Suicidal, threat to staff... and all critical care pts) @ -Yes ACS, cardiac arrest Disposition Clinical Impression: Chest pain Disposition: ADMITTED IP TO THIS [facility] Instructions (If sedation given, give patient instructions): Chest Pain (ED) Referrals: None,Stated [Primary Care Provider] - 1-2 days Time of Disposition: 10:52
--- NOTE | 2024-04-24 09:47 | XR ---
EXAMINATION TYPE: XR chest 2V DATE OF EXAM: 04/24/2024 COMPARISON: 06/03/23 HISTORY: Chest pain TECHNIQUE: Frontal and lateral views of the chest are obtained. FINDINGS: There is no focal air space opacity. No evidence for pneumothorax. No pleural effusion. The cardiac silhouette size is within normal limits. The osseous structures are grossly intact. IMPRESSION: 1. No acute cardiopulmonary process. [facility], , 04/24/2024 9:45 AM
[2024-04-24 09:50] LABS: Basophils % (A) 0 %; Eosinophils # (A) 0.2 k/uL (0-0.7); Eosinophils % (A) 4 %; HCT 44.9 % (39.0-53.0); HGB 15.1 gm/dL (13.0-17.5); Lymphocytes # (A) 1.7 k/uL (1.0-4.8); Lymphocytes % (A) 33 %; MCH 30.8 pg (25.0-35.0); MCHC 33.7 g/dL (31.0-37.0); MCV 91.5 fL (80.0-100.0); Mean Platelet Volume 8.4; Monocytes # (A) 0.4 k/uL (0-1.0); Monocytes % (A) 8 %; Neutrophils # (A) 2.8 k/uL (1.3-7.7); Neutrophils % (A) 53 %; Platelet Count 166 k/uL (150-450); RBC 4.91 m/uL (4.30-5.90); RDW 12.2 % (11.5-15.5); WBC 5.2 k/uL (3.8-10.6)
[2024-04-24 10:01] LABS: Prothrombin Time 11.1 sec (10.0-12.5)
[2024-04-24 10:02] LABS: ALT 50 U/L (4-49); AST 44 U/L (17-59); African American GFR (CKD) >90 (>60 ml/min/1.73 sqM); Albumin 4.7 g/dL (3.5-5.0); Alkaline Phosphatase 72 U/L (38-126); Anion Gap 9 mmol/L; Blood Urea Nitrogen 15 mg/dL (9-20); Calcium 9.5 mg/dL (8.4-10.2); Carbon Dioxide 26 mmol/L (22-30); Chloride 105 mmol/L (98-107); Glucose 105 mg/dL (74-99); Non-African American GFR(CKD) >90 (>60 ml/min/1.73 sqM); Potassium 3.9 mmol/L (3.5-5.1); Sodium 140 mmol/L (137-145); Total Bilirubin 0.9 mg/dL (0.2-1.3); Total Protein 7.2 g/dL (6.3-8.2)
--- NOTE | 2024-04-24 11:42 | P.HPIM ---
History of Present Illness H&P Date: 04/24/24 34 year old M with PMH of CAD status post stenting of January 2023 at [facility] presents to the ED for chest pain. He reports chest pain that has been ongoing for the past 2 weeks. His pain was initially intermittent but now constant with different level of intensity which prompted him to come to he ED. He reports the pain as left sided, described as an "air pocket" that radiates to the left side. Pain is not related to exertion, movement or meals. He denies any diaphoresis, N/V, lightheadedness or shortness of breath. He reports fatigue. He reports stress trying to take care of a one year old and currently in the process of moving. He takes ASA and Lipitor. Dr. Sin is his Radio Survey Worker and has stopped taking Brilinta and Metoprolol. In the ED he underwent extensive evaluation. BP 135/89, HR 79, RR 16, T97.7F, 99% on RA. CBC, Coag panel, CMP significant for glucose 105, ALT 50. Troponin < 0.012 with EKG showing NSR. D Dimer < 0.17. CXR negative. Patient is admitted for ACS rule out and Cardiology evaluation. General: non toxic, no distress, appears at stated age Derm: warm, dry Head: atraumatic, normocephalic, symmetric Eyes: EOMI, no lid lag, anicteric sclera Mouth: no lip lesion, mucus membranes moist Cardiovascular: S1S2 regular, no murmur Lungs: Clear to auscultation bilateral, no rhonchi, no rales , no accessory muscle use Ext: no gross muscle atrophy, no edema, no contractures Neuro: No focal neurologic deficits Psych: Alert and oriented Based on my assessment of this patient, this patient meets a high complexity level of care. Chest pain with h/o CAD and stent placement in 2022: Cardiac cath 2022 obtuse marginal 30-40%, distal RCA 10-20%. Trend Troponin/EKG to rule out ACS. ASA 81 mg PO QD. Lipitor 80 mg PO QHS. Telemetry monitoring. Cardiology consultation. CODE STATUS: FULL CODE. DVT Prophylaxis: Lovenox GI Prophylaxis: Designated medical POA if patient is not able to make medical decisions for themselves: I have reviewed the following budget consultant notes: ER note. I have reviewed the results of the following tests: As above. I have ordered the following tests: As above. I have discussed the care of this patient with the following independent historian: I have independently interpreted the following test below: EKG. I have discussed the management of this patient with the following physician: ER provider. Past Medical History Past Medical History: Hyperlipidemia, Myocardial Infarction ([place]) Additional Past Medical History / Comment(s): [place] History of Any Multi-Drug Resistant Organisms: None Reported Past Surgical History: Heart Catheterization With Stent Date of Last Stent Placement:: 2018 Past Psychological History: No Psychological Hx Reported Smoking Status: Never smoker Past Alcohol Use History: Occasional Past Drug Use History: None Reported Medications and Allergies Home Medications Medication Instructions Recorded Confirmed Type Aspirin 81 mg PO DAILY 06/03/23 04/24/24 History Atorvastatin Calcium [Lipitor] 80 mg PO HS 06/03/23 04/24/24 History Allergies Allergy/AdvReac Type Severity Reaction Status Date / Time No Known Allergies Allergy Verified 04/24/24 11:20 Physical Exam Vitals: Vital Signs Temp Pulse Resp BP Pulse Ox 04/24/24 09:18 97.7 F 79 16 135/89 99 Intake and Output 04/23/24 04/24/24 04/24/24 22:59 06:59 14:59 Other: Weight 86.183 kg Results CBC & Chem 7: 04/24/24 09:40 04/24/24 09:40 Labs: Abnormal Lab Results - Last 24 Hours (Table) 04/24/24 Range/Units 09:40 Glucose 105 H (74-99) mg/dL ALT 50 H (4-49) U/L
[2024-04-24] MEDS: ASPIRIN 81 MG PO STA (11:57)
[2024-04-24] MEDS: NITROGLYCERIN SL TABS 0.4 MG TAB SUBLINGUAL PRN (19:01)
[2024-04-24 20:07] LABS: Appearance,Urine Clear (Clear); Bilirubin,Urine Negative (Negative); Blood,Urine Negative (Negative); Color,Urine Colorless; Glucose,Urine (UA) Negative (Negative); Ketones,Urine Negative (Negative); Leukocyte Esterase,Urine Negative (Negative); Nitrite,Urine Negative (Negative); PH, Urine 7.5 (5.0-8.0); Protein,Urine Negative (Negative); Specific Gravity,Urine 1.009 (1.001-1.035); Urobilinogen,Urine <2.0 mg/dL (<2.0)
[2024-04-24] MEDS: ATORVASTATIN 80 MG TAB PO SCH (20:41)
[2024-04-24] MEDS ORDERED: TICAGRELOR 90 MG TAB PO SCH (21:00)
[2024-04-25] MEDS: ASPIRIN 81 MG PO SCH (08:40)
[2024-04-25] MEDS: ENOXAPARIN 40 MG/0.4 ML SYRINGE SQ SCH (08:40)
[2024-04-25 08:47] LABS: Chol/HDL Ratio 2.94 Ratio; LDL Cholesterol,Calculated 41.5 mg/dL (0.0-131.0)
[2024-04-25] MEDS ORDERED: METOPROLOL TARTRATE 25 MG TAB PO SCH (09:00)
[2024-04-25] MEDS ORDERED: ASPIRIN 325 MG TAB PO SCH (09:00)
[2024-04-25] MEDS ORDERED: ASPIRIN 81 MG PO SCH (09:00)
--- NOTE | 2024-04-25 09:02 | P.CRDCN ---
History of Present Illness Consult date: 04/25/24 Consult reason: chest pain History of present illness: This is a 34-year-old male patient with past medical history of coronary artery disease status post PCI to the diagonal 1 in January 2023, hyperlipidemia, family history of premature coronary artery disease. Patient was recently established with Dr. Sin on 03/15 2024 with reported fatigue. Patient's beta-madison was discontinued and patient was continued on a atorvastatin and aspirin only with plan to obtain echocardiogram, treadmill echo stress test and lab work. Patient is now presented to the emergency center with complaints of chest pain that has been constant for the past 2 weeks and is significantly worsened yesterday. He states that it does feel similar to his heart attack 1 year ago. 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 Blood pressure 129/78, heart rate 67, pulse ox 98% on room air. Patient is status post 1 L of IV fluids. EKG: Sinus rhythm with no acute ST-T wave changes. Chest x-ray: No acute process Laboratory studies: CBC, D-dimer, electrolytes renal function all within normal limits. Troponin negative x 3. Triglycerides 116, cholesterol 98, LDL 41, HDL 33. Home cardiac medications: Atorvastatin 80 mg daily Review Of Systems: At the time of my exam: CONSTITUTIONAL: Denies fever or chills. HEENT: Denies blurred vision, vision changes, or eye pain. Denies hemoptysis CARDIOVASCULAR: Reports chest pain. Denies orthopnea. Denies PND. Denies palpitations RESPIRATORY: Denies shortness of breath. GASTROINTESTINAL: Denies abdominal pain. Denies nausea or vomiting. HEMATOLOGIC: Denies bleeding disorders. GENITOURINARY: Denies any blood in urine. SKIN: Denies puritis. Denies rash. Physical examination: Gen: This is a 34-year-old male resting in bed and appears to be comfortable and in no acute distress VS: reviewed HEENT: Head is atraumatic, normocephalic. Pupils equal, round. Sclerae is anicteric. NECK: Supple. No JVD. LUNGS: Clear to auscultation. No wheezes or rhonchi. No intercostal retractions. HEART: Regular rate and rhythm. No murmur. ABDOMEN: Soft No tenderness. EXTREMITIES: No pedal edema. No calf tenderness. NEUROLOGICAL: Patient is awake, alert and oriented x3. Assessment: Chest pain with negative troponins, acute coronary syndrome ruled out History of coronary artery disease with previous PCI to the diagonal branch in January 2023 Hyperlipidemia Family history of premature coronary artery disease Plan: Resume patient's home cardiac medications Start patient on aspirin 81 mg daily Obtain 2-D echocardiogram and Doppler study to assess cardiac structure and function Obtain Cardiolite stress test today If testing is unremarkable, patient is cleared for discharge and may follow-up in the office with Dr. Sin in 1 week Further recommendations to follow based upon clinical course Thank you kindly for this consultation. Nurse practitioner note has been reviewed, I agree with documented findings and plan of care. Patient was seen and examined. Past Medical History Past Medical History: Hyperlipidemia, Myocardial Infarction ([place]) Additional Past Medical History / Comment(s): [place] Last Myocardial Infarction Date:: 2022 History of Any Multi-Drug Resistant Organisms: None Reported Past Surgical History: Heart Catheterization With Stent Date of Last Stent Placement:: 2022 Past Psychological History: No Psychological Hx Reported Smoking Status: Never smoker Past Alcohol Use History: Occasional Past Drug Use History: None Reported Medications and Allergies Home Medications Medication Instructions Recorded Confirmed Type Aspirin 81 mg PO DAILY 06/03/23 04/24/24 History Atorvastatin Calcium [Lipitor] 80 mg PO HS 06/03/23 04/24/24 History Allergies Allergy/AdvReac Type Severity Reaction Status Date / Time No Known Allergies Allergy Verified 04/24/24 11:20 Physical Exam Vitals: Vital Signs Temp Pulse Pulse Resp BP BP Pulse Ox 04/25/24 02:52 97.6 F 87 16 110/71 99 04/24/24 21:11 97.5 F L 66 17 130/81 100 04/24/24 20:56 98.2 F 63 15 109/83 98 04/24/24 18:00 58 L 18 130/86 97 04/24/24 13:00 62 18 128/77 98 04/24/24 09:18 97.7 F 79 16 135/89 99 Intake and Output 04/24/24 04/25/24 04/25/24 22:59 06:59 14:59 Other: # Voids 1 2 Weight 86.183 kg Results 04/24/24 09:40 04/24/24 09:40 Cardiac Enzymes 04/24/24 04/24/24 04/24/24 Range/Units 09:40 09:40 12:32 AST 44 (17-59) U/L Troponin I <0.012 <0.012 (0.000-0.034) ng/mL 04/24/24 Range/Units 15:26 AST (17-59) U/L Troponin I <0.012 (0.000-0.034) ng/mL Coagulation 04/24/24 Range/Units 09:40 PT 11.1 (10.0-12.5) sec APTT 25.0 (22.0-30.0) sec CBC 04/24/24 Range/Units 09:40 WBC 5.2 (3.8-10.6) k/uL RBC 4.91 (4.30-5.90) m/uL Hgb 15.1 (13.0-17.5) gm/dL Hct 44.9 (39.0-53.0) % Plt Count 166 (150-450) k/uL Comprehensive Metabolic Panel 04/24/24 Range/Units 09:40 Sodium 140 (137-145) mmol/L Potassium 3.9 (3.5-5.1) mmol/L Chloride 105 (98-107) mmol/L Carbon Dioxide 26 (22-30) mmol/L BUN 15 (9-20) mg/dL Creatinine 0.94 (0.66-1.25) mg/dL Glucose 105 H (74-99) mg/dL Calcium 9.5 (8.4-10.2) mg/dL AST 44 (17-59) U/L ALT 50 H (4-49) U/L Alkaline Phosphatase 72 (38-126) U/L Total Protein 7.2 (6.3-8.2) g/dL Albumin 4.7 (3.5-5.0) g/dL Current Medications Generic Name Dose Route Start Last Admin Trade Name Freq PRN Reason Stop Dose Admin Aspirin 81 mg 04/25/24 09:00 Aspirin 81 Mg PO DAILY [facility] Atorvastatin Calcium 80 mg 04/24/24 21:00 04/24/24 20:41 Atorvastatin 80 Mg Tab PO 80 mg HS MAGDY Administration Enoxaparin Sodium 40 mg 04/25/24 09:00 Enoxaparin 40 Mg/0.4 Ml Syringe SQ DAILY [facility] Nitroglycerin 0.4 mg 04/24/24 10:49 04/24/24 19:01 Nitroglycerin Sl Tabs 0.4 Mg Tab SUBLINGUAL 0.4 mg Q5M PRN Administration Chest Pain Intake and Output 04/24/24 04/25/24 04/25/24 22:59 06:59 14:59 Other: # Voids 1 2 Weight 86.183 kg 04/24/24 09:40 04/24/24 09:40
--- NOTE | 2024-04-25 10:25 | CA ---
Exercise Stress Test Report Name: Kian Farrell Exam Date: 04/25/2024 09:21 Exam Location: [facility] Stress Ht (in): 70 Wt (lb): 190 BSA: 2.04 Ordering Phys: Sofi Su Referring Phys: CALEB Technologist: Aayush Godinez Age: 34 Gender: M : 1990 Procedure CPT: Indications: Reflex order-Stress test ICD-10 Codes: Patient History: CHEST PAIN, NUMBNESS IN FACE/NECK, HYPERCHOLESTEROLEMIA, FAMILY HX OF HEART DISEASE, PRIOR ND, PRIOR CATH WITH STENT Medications: Meds past 24 hrs: Pretest Chest Pain: STRESS TEST Charlie Protocol Exercise Duration (min:sec): 10:[address] Depressions (mm): Angina Score: Doran Score: Resting HR (bpm): 82 Peak HR (bpm): 174 Resting BP (mmHg): 135 / 87 Peak BP (mmHg): / 76 MPHR: 184 Target HR: 156 % MPHR: 95 METS: 12.1 Total Dose: Peak Dose: Atropine: Double Product: BP Response: Stress Termination: MAX EXERTION/TARGET HR Stress Symptoms: NO SYMPTOMS Stress Summary: ECG ANALYSIS Resting ECG: Normal sinus rhythm poor R wave progression normal axis normal intervals Stress ECG: Patient exercised on Charlie protocol for 10 and half minutes without chest pain or diagnostic ST segment depression CONCLUSIONS Good exercise tolerance Negative stress test by EKG criteria Dr. Don Arita MD (Electronically Signed) Final Date: 25 April 2024 10:24
--- NOTE | 2024-04-25 18:17 | NM ---
EXAMINATION TYPE: NM stress cardiolite complete DATE OF EXAM: 04/25/2024 COMPARISON: NONE HISTORY: Chest pain TECHNIQUE: After the intravenous administration of 9.84 mCi Tc 99m Sestamibi - Cardiolite resting SP ECT images acquired 60 minutes post injection. At peak stress 27 mCi Tc 99m Sestamibi - Stress images obtained 25 minutes post injection The patient was stressed with 0.4mg Lexiscan. FINDINGS: No fixed defects are evident. No reversible stress defects on Spect images. There is dyskinesia of the cardiac apex and inferior wall. Some milder anterior wall dyskinesia is pr esent Ejection fraction is calculated to be 43 %, which is low. Greater than normal greater than 50%. IMPRESSION: 1. No stress-induced ischemic changes. 2. Dyskinesia of the anterior, inferior, and cardiac apex with low ejection fraction of 43% [facility], Workstation: [facility], 04/25/2024 6:15 PM
--- NOTE | 2024-04-25 18:44 | P.PN ---
Subjective Progress Note Date: 04/25/24 Hospital course: Patient is a very pleasant 34-year-old male with a past medical history of CAD status post stenting and hyperlipidemia. He presented to the emergency department on 04/24/2024 with a chief complaint of chest pain. Upon arrival to our facility, patient underwent evaluation in the emergency department. Vital signs upon arrival show blood pressure 135/89, heart rate 79, respiratory rate 16, temp 97.7 F, and SpO2 of 99% on room air. EKG was completed showing normal sinus rhythm at 62 bpm with no noted T wave or ST abnormality showing no signs of acute ischemia upon personal review and interpretation. Chest x-ray completed negative for acute cardiopulmonary process. Labs completed and reviewed. CBC, coagulation profile, and BMP were unremarkable. D-dimer was negative at less than 0.17. Blood glucose was 105. Magnesium 2.0. Liver profile showing elevated ALT otherwise normal findings. Troponin was negative at less than 0.012. Patient admitted under our services with consultation to cardiology. Troponins were trended overnight all negative at less than 0.012 x 3 draws. Lipid profile unremarkable with exception of low HDL of 33.30. Physical exam: Patient seen and fully evaluated at bedside. He was sitting up in the chair and currently reports being free from chest pain/discomfort. He denies having any other complaints or needs at this time. Vital signs reviewed and stable. General: Nontoxic, no distress and appears stated age. Derm: Skin warm and dry, normal coloration for ethnicity. Head: Atraumatic, normocephalic and symmetric. Eyes: EOM's intact, no lid lag, and anicteric sclera Mouth: no lip lesions, mucus membranes moist Cardiovascular: regular rate and rhythm with normal S1S2, no murmur, positive posterior tibial pulses bilaterally, and cap refill < 2 seconds. Lungs: Respirations even, regular, and unlabored on room air. Lungs CTA bilaterally, no rhonchi, no rales, no wheezing, and no accessory muscle usage. Abdominal: soft, nontender to palpation, no guarding, no appreciable organomegaly Ext: ROM intact. No gross muscle atrophy, no edema, no contractures Neuro: Speech clear, face symmetrical and CN II-XII grossly intact with no noted focal neuro deficits Psych: Alert and oriented to person, place, time, and situation. Appropriate and pleasant affect. Assessment and Plan of Care: Chest pain, acute coronary event ruled out History of CAD status post stenting Hyperlipidemia -Cardiology consulted, plan of care with cardiac JUSTOWRITER OPERATOR patient went down for Card iolite stress test. -Telemetry monitoring -Troponins were negative at less than 0.012 x 3 draws. -Cardiac diet -Continue aspirin 81 mg daily, atorvastatin 80 mg nightly and as needed nitroglycerin 0.4 mg sublingual every 5 minutes as needed for chest pain x 3 doses. -Lipid profile unremarkable with the exception of low HDL of 33.30. Data and imaging reviewed: Cardiac stress test negative awaiting Cardiolite stress test results. Troponins were trended all negative at less than 0.012 x 3 draws. Vital signs reviewed. Blood pressure 129/78, heart rate 67, respiratory rate 14, temp 97.6 F, and SpO2 of 98% on room air. Repeat morning EKG completed showing sinus bradycardia at 56 bpm with no noted T wave or ST abnormality showing no signs of acute ischemia upon personal review and interpretation. CODE STATUS: Full code DVT prophylaxis: Lovenox Anticipated discharge date: Likely within the next 24 hours pending Cardiolite stress test results Anticipated discharge place: Home Patient was seen independently by Nurse Pracitioner. This document was prepared using [employer] dictation software. Please allow for errors in cub reporter, while rare they do occur. Luc Leigh NP rendered care for this patient independently, reviewed the findings and plan as documented in the note above. I did not physically speak with or examine the patient on this date. Objective - Vital Signs Vital signs: Vital Signs Temp 97.6 F 04/25/24 07:00 Pulse 67 04/25/24 07:00 Resp 14 04/25/24 07:00 BP 129/78 04/25/24 07:00 Pulse Ox 98 04/25/24 07:00 FiO2 Intake & Output 04/24/24 04/25/24 04/25/24 18:59 06:59 18:59 Weight 86.183 kg 86.183 kg Other: # Voids 2 - Labs CBC & Chem 7: 04/24/24 09:40 04/24/24 09:40 Labs: Abnormal Lab Results - Last 24 Hours (Table) 04/24/24 04/25/24 Range/Units 09:40 05:01 Glucose 105 H (74-99) mg/dL ALT 50 H (4-49) U/L HDL Cholesterol 33.30 L (40.00-60.00) mg/dL
[2024-04-26 07:23] VITALS: BP 130/86; PULSE 63; RESP 20; TEMP 97.7
[2024-04-26] MEDS: METOPROLOL SUCCINATE (ER) 25 MG TAB.ER.24H PO SCH (09:30)
--- NOTE | 2024-04-26 09:42 | P.DS ---
Providers Date of admission: 04/24/24 10:50 Expected date of discharge: 04/26/24 Attending physician: Linda Kerns MD Consults: 04/24/24 10:49 Consult Physician Urgent Consulting Provider: All Siu Consult Reason/Comments: chest pain Do you want consulting provider notified?: Yes Primary care physician: Stated None Hospital Course: Discharge Diagnosis: Chest pain, acute coronary event ruled out History of CAD status post stenting Hyperlipidemia Hospital course: Patient is a very pleasant 34-year-old male with a past medical history of CAD status post stenting and hyperlipidemia. He presented to the emergency department on 04/24/2024 with a chief complaint of chest pain. Upon arrival to our facility, patient underwent evaluation in the emergency department. Vital signs upon arrival show blood pressure 135/89, heart rate 79, respiratory rate 16, temp 97.7 F, and SpO2 of 99% on room air. EKG was completed showing normal sinus rhythm at 62 bpm with no noted T wave or ST abnormality showing no signs of acute ischemia upon personal review and interpretation. Chest x-ray completed negative for acute cardiopulmonary process. Labs completed and reviewed. CBC, coagulation profile, and BMP were unremarkable. D-dimer was negative at less than 0.17. Blood glucose was 105. Magnesium 2.0. Liver profile showing elevated ALT otherwise normal findings. Troponin was negative at less than 0.012. Patient admitted under our services with consultation to cardiology. Troponins were trended overnight all negative at less than 0.012 x 3 draws. Lipid profile unremarkable with exception of low HDL of 33.30. Cardiac stress test was negative. Cardiolite stress test negative for stress- induced ischemic changes, revealing dyskinesia of the anterior, inferior, and cardiac apex with a low ejection fraction of 43%. Patient remained free from any further episodes of chest pain/discomfort. Assistant Manager Trainee clearing patient from cardiac perspective and recommending starting patient on metoprolol 12.5 mg daily and following up outpatient in their office in 1 week. Medically patient stable for discharge at this time, patient to follow-up outpatient with PCP and ultrasonic solderer. Appointments made prior to discharge. Physical exam: Vital signs reviewed and stable. General: Nontoxic, no distress and appears stated age. Derm: Skin warm and dry, normal coloration for ethnicity. Head: Atraumatic, normocephalic and symmetric. Eyes: EOM's intact, no lid lag, and anicteric sclera Mouth: no lip lesions, mucus membranes moist Cardiovascular: regular rate and rhythm with normal S1S2, no murmur, positive posterior tibial pulses bilaterally, and cap refill < 2 seconds. Lungs: Respirations even, regular, and unlabored on room air. Lungs CTA bilaterally, no rhonchi, no rales, no wheezing, and no accessory muscle usage. Abdominal: soft, nontender to palpation, no guarding, no appreciable organomegaly Ext: ROM intact. No gross muscle atrophy, no edema, no contractures Neuro: Speech clear, face symmetrical and CN II-XII grossly intact with no noted focal neuro deficits Psych: Alert and oriented to person, place, time, and situation. Appropriate and pleasant affect. A total of 32 minutes of time were spent preparing this complex discharge summary. Pt was discharged on 03/27/2024 at 9:40 AM. Patient was seen independently by Nurse Practitioner. This document was prepared using [employer] dictation software. Please allow for errors in training designer while rare they do occur. Luc Leigh NP rendered care for this patient independently, reviewed the findings and plan as documented in the note above. I did not physically speak with or examine the patient on this date. Patient Condition at Discharge: Stable Plan - Discharge Summary New Discharge Prescriptions: New Metoprolol Succinate (ER) [Toprol XL] 12.5 mg PO DAILY 30 Days #30 tab Continue Atorvastatin Calcium [Lipitor] 80 mg PO HS Aspirin 81 mg PO DAILY Discharge Medication List Aspirin 81 mg PO DAILY 06/03/23 [History] Atorvastatin Calcium [Lipitor] 80 mg PO HS 06/03/23 [History] Metoprolol Succinate (ER) [Toprol XL] 12.5 mg PO DAILY 30 Days #30 tab 04/26/24 [Rx] Follow up Appointment(s)/Referral(s): Manoj Sin MD [Medical Doctor] - 05/09/24 2:45 pm Kenn Aldana MD [REFERRING] - 05/03/24 2:30 pm (Please call and schedule appointment for follow up next week prior to discharge) Patient Instructions/Handouts: Chest Pain (ED) Activity/Diet/Wound Care/Special Instructions: Activity: As tolerated. Take breaks as needed. Diet: Heart healthy and carb consistent diet. Avoid salts, or foods with hidden salts such as canned or boxed foods and frozen dinners. Extra salt makes your heart work harder and traps the fluid in your body for longer. Special Instructions: Take all of your medications as directed and remember to keep all of your doctor's appointments and follow-up as needed. Thank you for allowing us to participate in your care, it was truly a pleasure having you for our patient!!! Discharge Disposition: HOME SELF-CARE
--- NOTE | 2024-04-26 15:58 | P.PN ---
Subjective Progress Note Date: 04/26/24 Consult reason: chest pain History of present illness: Dr. Sin addendum In clinic I will start patient's beta-madison because of low resting heart rate. This time patient's chest pain symptoms which gets worse with anxiety described as chest pressure radiating to left arm I will add a low-dose beta-madison for him. Toprol succinate 12.5 mg daily. Aspirin, Lipitor 40 mg daily. Lipids are well-controlled LDL 41 I reviewed the stress test and it does not show any reversible ischemia however the radiologist reported hypokinesia of the apex. I would obtain an echocardiogram outpatient for this. Recommend outpatient with cardiology This is a 34-year-old male patient with past medical history of coronary artery disease status post PCI to the diagonal 1 in January 2023, hyperlipidemia, family history of premature coronary artery disease. Patient was recently established with Dr. Sin on 03/15 2024 with reported fatigue. Patient's beta-madison was discontinued and patient was continued on a atorvastatin and aspirin only with plan to obtain echocardiogram, treadmill echo stress test and lab work. Patient is now presented to the emergency center with complaints of chest pain that has been constant for the past 2 weeks and is significantly worsened yesterday. He states that it does feel similar to his heart attack 1 year ago. 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 Blood pressure 129/78, heart rate 67, pulse ox 98% on room air. Patient is status post 1 L of IV fluids. EKG: Sinus rhythm with no acute ST-T wave changes. Chest x-ray: No acute process Laboratory studies: CBC, D-dimer, electrolytes renal function all within normal limits. Troponin negative x 3. Triglycerides 116, cholesterol 98, LDL 41, HDL 33. Home cardiac medications: Atorvastatin 80 mg daily 04/26 Patient states that when he has higher anxiety he gets pressure in his chest. He denies any chest pain at this time. Patient underwent stress echocardiogram yesterday. Dr. Sin reviewed results of the testing and films and testing appears to be normal. Patient has been instructed to take a lower dose of Lipitor at 40 mg and will be started on a beta-madison at 12.5 mg. Heart rate is running in the 60s and 80s, blood pressure 130/86. Physical examination: Gen: This is a 34-year-old male resting in bed and appears to be comfortable and in no acute distress VS: reviewed HEENT: Head is atraumatic, normocephalic. Pupils equal, round. Sclerae is anicteric. NECK: Supple. No JVD. LUNGS: Clear to auscultation. No wheezes or rhonchi. No intercostal retractions. HEART: Regular rate and rhythm. No murmur. ABDOMEN: Soft No tenderness. EXTREMITIES: No pedal edema. No calf tenderness. NEUROLOGICAL: Patient is awake, alert and oriented x3. Assessment: Chest pain with negative troponins, acute coronary syndrome ruled out History of coronary artery disease with previous PCI to the diagonal branch in January 2023 Hyperlipidemia Family history of premature coronary artery disease Plan: Continue patient on aspirin 81 mg daily, decrease atorvastatin to 40 mg daily and start patient on Toprol XL 12.5 mg daily Patient is cleared for discharge from cardiology and will follow-up in the office with Dr. Sin in 1 week. Nurse practitioner note has been reviewed, I agree with documented findings and plan of care. Patient was seen and examined. Objective - Vital Signs Vital signs: Vital Signs Temp 97.7 F 04/26/24 07:00 Pulse 63 04/26/24 07:00 Resp 20 04/26/24 07:00 BP 130/86 04/26/24 07:00 Pulse Ox 100 04/26/24 07:00 FiO2 Intake & Output 04/25/24 04/26/24 04/26/24 18:59 06:59 18:59 Intake Total 118 Balance 118 Intake: Oral 118 Other: Voiding Method Toilet # Voids 4 3 # Bowel Movements 1 - Labs CBC & Chem 7: 04/24/24 09:40 04/24/24 09:40
[2024-04-26] MEDS ORDERED: ATORVASTATIN 40 MG TAB PO SCH (21:00)
== END 2024-04-26 10:10 | disposition home or self-care (01) ==
LOC: EC 09:08 → 6NMEDSUR 10:50
PROVIDERS: ADMIT Family Medicine; ATTEND Family Medicine
DX: R07.9 Chest pain, unspecified
CPT/HCPCS: 36415; 71046; 78452; 80053; 80061; 81003; 83735; 84484; 85025; 85379; 85610; 85730; 93005; 93017; 96360; 96372; 99285

== ENCOUNTER → 2024-09-19 | Outpatient (CLI) | payer OTHER ==
--- NOTE | 2024-09-19 09:37 | XR ---
EXAMINATION TYPE: XR abdomen 2V DATE OF EXAM: 09/19/2024 CLINICAL HISTORY: Constipation and lower abdominal pain. TECHNIQUE: Supine, upright, and left side down lateral decubitus views of the abdomen are obtained. COMPARISON: None. FINDINGS: Scattered gas is seen in non-distended small bowel loops. Gas and fecal material is seen in non-distended colon. No significant colonic fecal prominence. There is no visceromegaly, pneumope ritoneum, or abnormal calcification appreciated. The lung bases are clear and the osseous structure s are intact. IMPRESSION: Overall nonobstructive bowel gas pattern. [facility], , 09/19/2024 9:34 AM
== END | disposition home or self-care (01) ==
LOC: RADXRMAIN 09:15
PROVIDERS: ATTEND Internal Medicine Gastroenterology
DX: K59.09 Other constipation (principal)
CPT/HCPCS: 74019